=== PATIENT | female | born 1940 | race Two or more races ===

== ENCOUNTER 2017-09-04 18:51 | Inpatient (IN) | payer MEDICARE ==
[~2017-09-04] VITALS: Ht 157.5 cm; Wt 74.8 kg
--- NOTE | 2017-09-04 19:00 | NUR ---
Admitted patient from ER via [facility] with admitting DX: S/P Left Hip Arthoplasty. Routine admission care done. Plan of care initiated.
[2017-09-04 20:26] VITALS: BP 150/59
[2017-09-04] MEDS ORDERED: MAGN400O6 PO (20:59)
[2017-09-04] MEDS ORDERED: ARIP5TAB10 PO (20:59)
[2017-09-04] MEDS ORDERED: PANT40TA4 PO (20:59)
[2017-09-04] MEDS ORDERED: SOLI10TA2 PO (20:59)
[2017-09-04] MEDS ORDERED: LOSA50TA21 PO (20:59)
[2017-09-04] MEDS ORDERED: ACET325T53 PO (20:59)
[2017-09-04] MEDS ORDERED: DRON2.5C3 PO (20:59)
[2017-09-04] MEDS ORDERED: CLON0.1T PO (20:59)
[2017-09-04] MEDS ORDERED: DULO60CA63 PO (20:59)
[2017-09-04] MEDS ORDERED: GABA-536 PO (20:59)
[2017-09-04] MEDS ORDERED: NEBI5TAB8 PO (20:59)
[2017-09-04] MEDS ORDERED: ATOR40TA PO (20:59)
[2017-09-04] MEDS ORDERED: FOLI1TAB16 PO (20:59)
[2017-09-04] MEDS ORDERED: BISA-79 PR (20:59)
[2017-09-04] MEDS ORDERED: NA P133E RC (20:59)
[2017-09-04] MEDS ORDERED: MULT1TAB73 PO (20:59)
[2017-09-04] MEDS ORDERED: CHOL20004 PO (20:59)
[2017-09-04] MEDS ORDERED: SENN-18 PO (20:59)
[2017-09-04] MEDS ORDERED: LORA1TAB PO (20:59)
[2017-09-04] MEDS ORDERED: DOCU100C36 PO (20:59)
[2017-09-04] MEDS ORDERED: Z GUARD REMEDY PASTE 57 GM TUBE TOP PRN (22:45)
[2017-09-04] MEDS ORDERED: LORAZEPAM 1 MG TABLET PO PRN (23:00)
[2017-09-04] MEDS ORDERED: CLONIDINE HCL 0.1 MG TABLET PO PRN (23:00)
[2017-09-04] MEDS ORDERED: FLEET ENEMA 133 ML BOTTLE RC PRN (23:00)
[2017-09-05] MEDS: ACETAMINOPHEN 325 MG TABLET PO PRN ×2 (03:16→12:58)
--- NOTE | 2017-09-05 03:20 | NUR ---
Complaint of left hip incision pain, medicated with Tylenol as ordered and ordered. Will monitor.
[2017-09-05 05:00] VITALS: BP 149/71
[2017-09-05] MEDS: PANTOPRAZOLE SODIUM 40 MG TABLET.DR PO SCH (06:06)
--- NOTE | 2017-09-05 06:36 | NUR ---
Shift End Report: Vs stable. Slept well. Medicated once for complaint of pain in the incision site with relief. No further complaint presented. All needs attended and met. No significant event reported. Continue current plan of care.
[2017-09-05 07:55] VITALS: BP 151/69
[2017-09-05] MEDS ORDERED: Medication Not On Formulary EA (Solifenacin Succinate (Vesicare) 1 TAB) PO SCH (09:00)
[2017-09-05] MEDS ORDERED: Medication Not On Formulary EA (Nebivolol Hcl (Bystolic) 5 MG) PO SCH (09:00)
[2017-09-05] MEDS ORDERED: Medication Not On Formulary EA (Cholecalciferol (Vitamin D3) (Vitamin D CAPSULE) 1 CAP) PO SCH (09:00)
[2017-09-05] MEDS ORDERED: Medication Not On Formulary EA (Multivitamins (Multivitamin) 1 TAB) PO SCH (09:00)
[2017-09-05] MEDS: GABAPENTIN 400 MG CAPSULE PO SCH ×3 (09:32→17:13)
[2017-09-05] MEDS: OXYBUTYNIN CHLORIDE 5 MG TABLET PO SCH ×3 (09:32→17:13)
[2017-09-05] MEDS: LOSARTAN POTASSIUM 50 MG TABLET PO SCH (09:32)
[2017-09-05] MEDS: DOCUSATE SODIUM 100 MG CAPSULE PO SCH ×2 (09:32→17:12)
[2017-09-05] MEDS: DULOXETINE 60 MG CAPSULE.DR PO SCH (09:33)
[2017-09-05] MEDS: MULTIVITAMINS,THERAPEUTIC TABLET PO SCH (09:33)
[2017-09-05] MEDS: DRONABINOL 2.5 MG CAPSULE PO SCH ×2 (09:34→20:57)
[2017-09-05] MEDS: ARIPIPRAZOLE 5 MG TABLET PO SCH (09:34)
[2017-09-05] MEDS: CHOLECALCIFEROL 1,000 UNIT TABLET PO SCH (09:34)
[2017-09-05] MEDS: FOLIC ACID 1 MG TABLET PO SCH (09:44)
[2017-09-05] MEDS: OXYCODONE/APAP 5-325 MG TABLET PO PRN ×2 (10:07→17:15)
--- NOTE | 2017-09-05 20:02 | NUR ---
SBAR report received, board updated. Pt assessed, no acute distress or SOB noted. Pt c/o pain 09/05. notified, new order received. Pt medicated for pain as ordered for PRN pain. All comfort and safety needs attended to. Bed in locked and lowest position with side rails up x2. Abductor pillow in place. Pt compliant with all medications and care. Call light placed within reach. Will continue to monitor.
[2017-09-05 20:33] VITALS: BP 124/67
[2017-09-05] MEDS: SENNOSIDES 1 TABLET PO SCH (20:57)
[2017-09-05] MEDS: ATORVASTATIN 40 MG TABLET PO SCH (20:57)
[2017-09-05] MEDS: MORPHINE SULFATE SR 15 MG TABLET.SA PO SCH (21:11)
[2017-09-06] MEDS: ACETAMINOPHEN 325 MG TABLET PO PRN (03:11)
[2017-09-06] MEDS: OXYCODONE/APAP 5-325 MG TABLET PO PRN ×3 (04:13→18:04)
--- NOTE | 2017-09-06 04:29 | NUR ---
aaox4 admitted for left hip arthroplasty. left hip dressing with mariusz intact. noted a blister above left thigh. dressing applied. on pain management. pain meds given as ordered. needs attended. ambulates to the BR with walker with supervision. fall precautions maintained.kept comfortable.VSS.
[2017-09-06 05:56] VITALS: BP 125/80
[2017-09-06] MEDS: PANTOPRAZOLE SODIUM 40 MG TABLET.DR PO SCH (06:32)
[2017-09-06 08:00] VITALS: BP 141/73
[2017-09-06] MEDS: GABAPENTIN 400 MG CAPSULE PO SCH ×3 (09:16→16:30)
[2017-09-06] MEDS: DULOXETINE 60 MG CAPSULE.DR PO SCH (09:16)
[2017-09-06] MEDS: CHOLECALCIFEROL 1,000 UNIT TABLET PO SCH (09:16)
[2017-09-06] MEDS: FOLIC ACID 1 MG TABLET PO SCH (09:16)
[2017-09-06] MEDS: DRONABINOL 2.5 MG CAPSULE PO SCH ×2 (09:17→20:59)
[2017-09-06] MEDS: MULTIVITAMINS,THERAPEUTIC TABLET PO SCH (09:17)
[2017-09-06] MEDS: OXYBUTYNIN CHLORIDE 5 MG TABLET PO SCH ×3 (09:17→16:30)
[2017-09-06] MEDS: DOCUSATE SODIUM 100 MG CAPSULE PO SCH ×2 (09:17→16:31)
[2017-09-06] MEDS: ATENOLOL 25 MG TABLET PO SCH (09:18)
[2017-09-06] MEDS: LOSARTAN POTASSIUM 50 MG TABLET PO SCH (09:18)
[2017-09-06] MEDS: MORPHINE SULFATE SR 15 MG TABLET.SA PO SCH ×2 (09:19→20:59)
[2017-09-06] MEDS: ARIPIPRAZOLE 5 MG TABLET PO SCH (10:50)
[2017-09-06 16:00] VITALS: BP 103/50
--- NOTE | 2017-09-06 16:12 | NUR ---
SBAR report received this morning, board updated. Pt assessed, AAOx3, reports tolerable pain managed with scheduled and PRN pain medications. Pt compliant with routine medication administration and therapies as provided. Bed in locked and lowest position, side rails up x2. All comfort and safety needs met. Call light placed within reach. Will continue to monitor.
[2017-09-06 20:10] VITALS: BP 105/45
[2017-09-06] MEDS: SENNOSIDES 1 TABLET PO SCH (20:59)
[2017-09-06] MEDS: ATORVASTATIN 40 MG TABLET PO SCH (21:00)
[2017-09-07] MEDS: OXYCODONE/APAP 5-325 MG TABLET PO PRN ×3 (00:15→15:35)
[2017-09-07 05:56] VITALS: BP 110/46
--- NOTE | 2017-09-07 06:19 | NUR ---
Received report from day shift nurse , Pt slept well throughout the night , Pt had pain before sleep , a 7 / 10 , in left hip and was dull and aching . Pt given 2 tabs of Percoset and was effective , as pt went to sleep. No acute distress noted , pt is A & O x 4 , dressing on left hip is dry and intact .
[2017-09-07] MEDS: PANTOPRAZOLE SODIUM 40 MG TABLET.DR PO SCH (06:46)
--- NOTE | 2017-09-07 08:10 | NUR ---
RECEIVED PATIENT AWAKE, ALERT X4. WITH PAIN OVER LEFT HIP RATED 8/10. NOT IN ANY FORM OF DISTRESS. WILL CONTINUE TO MONITOR.
[2017-09-07 08:31] VITALS: BP 100/48
[2017-09-07] MEDS: CHOLECALCIFEROL 1,000 UNIT TABLET PO SCH (08:41)
[2017-09-07] MEDS: DULOXETINE 60 MG CAPSULE.DR PO SCH (08:42)
[2017-09-07] MEDS: DOCUSATE SODIUM 100 MG CAPSULE PO SCH ×2 (08:43→17:24)
[2017-09-07] MEDS: MULTIVITAMINS,THERAPEUTIC TABLET PO SCH (08:43)
[2017-09-07] MEDS: GABAPENTIN 400 MG CAPSULE PO SCH ×3 (08:43→17:24)
[2017-09-07] MEDS: FOLIC ACID 1 MG TABLET PO SCH (08:43)
[2017-09-07] MEDS: ARIPIPRAZOLE 5 MG TABLET PO SCH (08:44)
[2017-09-07] MEDS: MORPHINE SULFATE SR 15 MG TABLET.SA PO SCH ×2 (08:44→20:25)
[2017-09-07] MEDS: OXYBUTYNIN CHLORIDE 5 MG TABLET PO SCH ×3 (08:44→17:24)
[2017-09-07] MEDS: DRONABINOL 2.5 MG CAPSULE PO SCH ×2 (08:44→20:25)
[2017-09-07] MEDS: LOSARTAN POTASSIUM 50 MG TABLET PO SCH (08:49)
[2017-09-07] MEDS: ATENOLOL 25 MG TABLET PO SCH (08:49)
--- NOTE | 2017-09-07 09:00 | NUR ---
UP WITH PHYSICAL THERAPY, ROUTINE PAIN MEDICATIONS GIVEN. TOLERATING THERAPY WELL. HELD BLOOD PRESSURE MEDICATIONS. BP- 100/48. PATIENT ASYMPTOMATIC NO COMPLAINTS OF DIZZINESS, SOB OR CHEST PAINS.
--- NOTE | 2017-09-07 10:00 | NUR ---
SHOWERED WITH MINIMUM ASSISTANCE. SURGICAL DRESSING CHANGED, WOUND HEALING WELL, DRY INTACT MAGDA WITH BLISTER ON UPPER PART OF INCISION. PATIENT REQUESTED FOR HER TO BE SEEN BY WOUND CARE NURSE.
[2017-09-07] MEDS: SENNOSIDES 1 TABLET PO SCH (20:24)
[2017-09-07] MEDS: ATORVASTATIN 40 MG TABLET PO SCH (20:24)
[2017-09-07] MEDS: BISACODYL 5 MG TABLET.DR PO PRN (20:25)
[2017-09-07 20:26] VITALS: BP 105/55
[2017-09-08] MEDS: OXYCODONE/APAP 5-325 MG TABLET PO PRN ×4 (01:20→22:34)
--- NOTE | 2017-09-08 04:19 | NUR ---
aaox4 ambulates with walker to the BR. voiding well. needs attended. kept comfortable. pain meds given as ordered. relief noted. no further complaints noted this shift. will monitor patient.
[2017-09-08 05:12] VITALS: BP 94/44
[2017-09-08] MEDS: PANTOPRAZOLE SODIUM 40 MG TABLET.DR PO SCH (06:31)
[2017-09-08 08:00] VITALS: BP 109/49
--- NOTE | 2017-09-08 08:00 | NUR ---
Received patient awake, alert x4. Not in any form of distress with pain over left hip, routine pain medications given. Encouraged increase fluid intake. Offered prune juice to help with BM
[2017-09-08] MEDS: DRONABINOL 2.5 MG CAPSULE PO SCH ×2 (08:56→20:31)
[2017-09-08] MEDS: GABAPENTIN 400 MG CAPSULE PO SCH ×3 (08:56→16:55)
[2017-09-08] MEDS: DOCUSATE SODIUM 100 MG CAPSULE PO SCH ×2 (08:56→16:55)
[2017-09-08] MEDS: DULOXETINE 60 MG CAPSULE.DR PO SCH (08:56)
[2017-09-08] MEDS: MULTIVITAMINS,THERAPEUTIC TABLET PO SCH (08:57)
[2017-09-08] MEDS: OXYBUTYNIN CHLORIDE 5 MG TABLET PO SCH ×3 (08:57→16:55)
[2017-09-08] MEDS: FOLIC ACID 1 MG TABLET PO SCH (08:57)
[2017-09-08] MEDS: CHOLECALCIFEROL 1,000 UNIT TABLET PO SCH (08:57)
[2017-09-08] MEDS: ARIPIPRAZOLE 5 MG TABLET PO SCH (08:58)
[2017-09-08] MEDS: MORPHINE SULFATE SR 15 MG TABLET.SA PO SCH ×2 (08:58→20:31)
[2017-09-08] MEDS: LOSARTAN POTASSIUM 50 MG TABLET PO SCH (08:58)
[2017-09-08] MEDS: ATENOLOL 25 MG TABLET PO SCH (08:59)
--- NOTE | 2017-09-08 10:30 | NUR ---
Up with physical therapy, tolerating therapy well. PRN Percocet given pain rated as 7/10
[2017-09-08] MEDS: ACETAMINOPHEN 325 MG TABLET PO PRN (13:32)
--- NOTE | 2017-09-08 13:41 | NUR ---
INTERDISCIPLINARY TEAM CONFERENCE
--- NOTE | 2017-09-08 14:47 | NUR ---
WOUND CARE CONSULT: PT SEEN FOR RT UPPER HIP INTACT BLISTER, FROM PREVIOUS TAPE PER PATIENT. RECOMMENDATIONS MADE FOR WOUND CARE AND SKIN PROTECTION. DISCUSSED WITH NURSING STAFF. WILL SEE PRN. VALDEZ IN AGREEMENT WITH PLAN OF CARE. Addendum: 09/08/17 at 1448 by GOYO KRISHNA RN Amended: Links added.
[2017-09-08 16:00] VITALS: BP 128/62
[2017-09-08 19:59] VITALS: BP 107/59
[2017-09-08] MEDS: ATORVASTATIN 40 MG TABLET PO SCH (20:31)
[2017-09-08] MEDS: BISACODYL 5 MG TABLET.DR PO PRN (20:31)
[2017-09-08] MEDS: SENNOSIDES 1 TABLET PO SCH (20:31)
--- NOTE | 2017-09-08 21:56 | NUR ---
Received pt sleeping in bed. Aroused easily by name. AAO x4. VSS. No acute distress noted. C/o pain on left hip. Meds given per MD's order. Dulcolax HS PRN also given for constipation. Safety measures maintained. Call light and personal belongings within reach. Will continue to monitor.
[2017-09-09 05:00] VITALS: BP 117/54
[2017-09-09] MEDS: OXYCODONE/APAP 5-325 MG TABLET PO PRN ×2 (05:45→15:57)
[2017-09-09] MEDS: PANTOPRAZOLE SODIUM 40 MG TABLET.DR PO SCH (06:31)
[2017-09-09 07:39] LABS: BASOPHILS # (AUTO) 0.1 K/uL (0.0-8.0); BASOPHILS % (AUTO) 1.2 % (0.0-2.0); EOSINOPHILS # (AUTO) 0.4 K/uL (0.0-0.7); EOSINOPHILS % (AUTO) 5.9 % (0.0-7.0); HEMATOCRIT 30.3 % (31.2-41.9); HEMOGLOBIN 10.4 g/dL (10.9-14.3); LYMPHOCYTES # (AUTO) 2.2 K/uL (20.0-40.0); LYMPHOCYTES % (AUTO) 29.4 % (20.5-51.5); MEAN CORPUSCULAR HEMOGLOBIN 32.1 uug (24.7-32.8); MEAN CORPUSCULAR HGB CONC 34 g/dL (32.3-35.6); MEAN CORPUSCULAR VOLUME 93.6 fL (75.5-95.3); MONOCYTES # (AUTO) 1.1 K/uL (2.0-10.0); MONOCYTES % (AUTO) 14.4 % (0.0-11.0); NEUTROPHILS # (AUTO) 3.7 K/uL (1.8-8.9); NEUTROPHILS % (AUTO) 49.1 % (38.5-71.5); PLATELET COUNT (AUTO) 399 K/uL (179-408); RED BLOOD CELL COUNT(AUTO) 3.24 MIL/uL (3.63-4.92); WHITE BLOOD COUNT (AUTO) 7.5 K/uL (3.8-11.8)
[2017-09-09 07:53] LABS: ALANINE AMINOTRANSFERASE 17 U/L (14-59); ALKALINE PHOSPHATASE 115 U/L (50-136); ASPARTATE AMINOTRANSFERASE 15 U/L (15-37); BILIRUBIN,TOTAL 0.3 mg/dL (0.2-1.0); CARBON DIOXIDE 30 mmol/L (21-32); CHLORIDE 107 mmol/L (98-107); CREATININE 0.7 mg/dL (0.6-1.3); GLUCOSE 90 mg/dL (74-106); MAGNESIUM 1.8 mg/dL (1.8-2.4); PHOSPHOROUS 4.7 mg/dL (2.5-4.9); POTASSIUM 4.2 mmol/L (3.5-5.1); TOTAL PROTEIN, SERUM 5.8 g/dL (6.4-8.2); UREA NITROGEN, BLOOD 8 mg/dL (7-18)
[2017-09-09] MEDS: ARIPIPRAZOLE 5 MG TABLET PO SCH (08:49)
[2017-09-09] MEDS: GABAPENTIN 400 MG CAPSULE PO SCH ×3 (08:50→15:57)
[2017-09-09] MEDS: MULTIVITAMINS,THERAPEUTIC TABLET PO SCH (08:50)
[2017-09-09] MEDS: FOLIC ACID 1 MG TABLET PO SCH (08:50)
[2017-09-09] MEDS: DOCUSATE SODIUM 100 MG CAPSULE PO SCH ×2 (08:50→15:57)
[2017-09-09] MEDS: ATENOLOL 25 MG TABLET PO SCH (08:50)
[2017-09-09] MEDS: MAGNESIUM HYDROXIDE 30 ML LIQUID UDC PO SCH (08:50)
[2017-09-09] MEDS: DULOXETINE 60 MG CAPSULE.DR PO SCH (08:50)
[2017-09-09] MEDS: DRONABINOL 2.5 MG CAPSULE PO SCH ×2 (08:50→20:25)
[2017-09-09] MEDS: OXYBUTYNIN CHLORIDE 5 MG TABLET PO SCH ×3 (08:51→15:57)
[2017-09-09] MEDS: CHOLECALCIFEROL 1,000 UNIT TABLET PO SCH (08:51)
[2017-09-09] MEDS: LOSARTAN POTASSIUM 50 MG TABLET PO SCH (08:51)
[2017-09-09] MEDS: MORPHINE SULFATE SR 15 MG TABLET.SA PO SCH ×2 (08:51→20:25)
[2017-09-09 09:38] VITALS: BP 126/61
--- NOTE | 2017-09-09 09:51 | NUR ---
pt seen on rounding. pt vitals stable. received report that pt had not had a bm. offered dulcolax and taken. instructed pt not to use too much narcotics. pt agrees. will continue to monitor.
[2017-09-09] MEDS ORDERED: BISACODYL 10 MG SUPP.RECT RC PRN (13:45)
--- NOTE | 2017-09-09 19:30 | NUR ---
PT ALERT AND ORIENTED IN BED. NO DISTRESS NOTED. COMPLIANT WITH NURSING CARE. SAFETY MAINTAINED. CALL LIGHT WITHIN REACH. WILL CONTINUE TO MONITOR.
[2017-09-09 20:00] VITALS: BP 119/72
[2017-09-09] MEDS: SENNOSIDES 1 TABLET PO SCH (20:25)
[2017-09-09] MEDS: ATORVASTATIN 40 MG TABLET PO SCH (20:25)
[2017-09-10] MEDS: OXYCODONE/APAP 5-325 MG TABLET PO PRN ×4 (04:12→23:50)
[2017-09-10 05:43] VITALS: BP 103/54
[2017-09-10] MEDS: PANTOPRAZOLE SODIUM 40 MG TABLET.DR PO SCH (06:31)
--- NOTE | 2017-09-10 07:28 | NUR ---
PT ALERT AND ORIENTED IN BED. NO DISTRESS NOTED. COMPLIANT WITH NURSING CARE AND MEDICATIONS. ABDUCTOR PILLOW IN PLACE. SAFETY MAINTAINED. CALL LIGHT WITHIN REACH.
[2017-09-10] MEDS: CHOLECALCIFEROL 1,000 UNIT TABLET PO SCH (08:04)
[2017-09-10] MEDS: DULOXETINE 60 MG CAPSULE.DR PO SCH (08:04)
[2017-09-10] MEDS: MULTIVITAMINS,THERAPEUTIC TABLET PO SCH (08:04)
[2017-09-10] MEDS: ARIPIPRAZOLE 5 MG TABLET PO SCH (08:04)
[2017-09-10] MEDS: OXYBUTYNIN CHLORIDE 5 MG TABLET PO SCH ×3 (08:04→16:21)
[2017-09-10] MEDS: DOCUSATE SODIUM 100 MG CAPSULE PO SCH ×2 (08:04→16:21)
[2017-09-10] MEDS: GABAPENTIN 400 MG CAPSULE PO SCH ×3 (08:04→16:21)
[2017-09-10] MEDS: MORPHINE SULFATE SR 15 MG TABLET.SA PO SCH ×3 (08:05→21:00)
[2017-09-10] MEDS: FOLIC ACID 1 MG TABLET PO SCH (08:05)
[2017-09-10] MEDS: DRONABINOL 2.5 MG CAPSULE PO SCH ×2 (08:05→20:45)
[2017-09-10] MEDS: ATENOLOL 25 MG TABLET PO SCH (08:07)
[2017-09-10] MEDS: LOSARTAN POTASSIUM 50 MG TABLET PO SCH (08:07)
[2017-09-10 09:33] VITALS: BP 102/53
--- NOTE | 2017-09-10 20:00 | NUR ---
RECEIVED PATIENT AWAKE IN BED. A/O X4. VERY PLEASANT WHEN APPROACHED. DENIES PAIN AT THIS TIME. NO RESP. DISTRESS NOTED. DRESSING NOTED TO LEFT HIP, C/D/I. VS WNL. NEUROVASCULAR CHECKS WNL. CALL LIGHT IN REACH. ALL NEEDS ATTENDED. WILL CONTINUE TO MONITOR AND ASSESS.
[2017-09-10 20:44] VITALS: BP 95/62
[2017-09-10] MEDS: ATORVASTATIN 40 MG TABLET PO SCH (20:45)
[2017-09-10] MEDS: SENNOSIDES 1 TABLET PO SCH (20:45)
--- NOTE | 2017-09-10 21:00 | NUR ---
PATIENT ASLEEP IN BED. PATIENT HAS SCHEDULED MS CONTIN 15MG Q12 HOURS ORDERED. PATIENT DENIES PAIN AT THIS TIME. MS CONTIN HELD AT THIS TIME DUE TO DECREASED BP. BLOOD PRESSURE 90/50. PATIENT IS ASYMPTOMATIC. WILL CONTINUE TO MONITOR AND ASSESS. Addendum: 09/10/17 at 2210 by ETHAN AYALA LVN CHECKED BLOOD PRESSURE ON RIGHT ARM 85/49 AND LEFT ARM 90/50. WILL NOTIFY
--- NOTE | 2017-09-10 21:50 | NUR ---
NOTIFIED DR. CUETO OF HOLDING PATIENTS MS CONTIN MEDICATION DUE TO DECREASED MEDICATION. RECEIVED NEW ORDER TO D/C MS 15MG. WILL ALSO CALL LEO OHARA TO NOTIFY HIM OF LOW BP. WILL CONTINUE TO MONITOR AND ASSESS.
--- NOTE | 2017-09-10 22:15 | NUR ---
NOTIFIED ANJUM LETTER[employer] SETTER OF PATIENTS LOW BLOOD PRESSURE. NO NEW ORDERS RECEIVED AT THIS TIME. WILL CONTINUE TO MONITOR AND ASSESS BLOOD PRESSURE. ALL NEEDS ATTENDED.
--- NOTE | 2017-09-10 23:25 | NUR ---
ASSISTED PATIENT TO BATHROOM. DENIES PAIN. RECHECKED BLOOD PRESSURE AND RECEIVED 125/51. ALL OTHER VS WNL. ALL NEEDS ATTENDED. WILL CONTINUE TO MONITOR AND ASSESS.
[2017-09-11 05:09] VITALS: BP 108/49
[2017-09-11] MEDS: OXYCODONE/APAP 5-325 MG TABLET PO PRN ×5 (06:02→23:42)
--- NOTE | 2017-09-11 06:07 | NUR ---
PATIENT AWAKE IN BED. VSS. C/O PAIN IN LEFT HIP. GIVEN PERCOCET 2 TAB PO PRN FOR PAIN. CALL LIGHT IN REACH. ALL NEEDS ATTENDED. WILL CONTINUE TO MONITOR AND ASSESS.
[2017-09-11] MEDS: PANTOPRAZOLE SODIUM 40 MG TABLET.DR PO SCH (06:35)
--- NOTE | 2017-09-11 07:50 | NUR ---
RECEIVED PATIENT AWAKE, ALERT AND ORIENTEDX4. NO COMPLAINT VOICE DURING ROUNDS. NOT IN DISTRESS. CONTINUE THERAPY FOR S/P ARTHROPLASTY. CONTINUE ON PAIN MANAGEMENT WITH GOOD EFFECT. WILL CONTINUE MONITOR
[2017-09-11 08:00] VITALS: BP 106/43
[2017-09-11] MEDS: ARIPIPRAZOLE 5 MG TABLET PO SCH (08:34)
[2017-09-11] MEDS: ATENOLOL 25 MG TABLET PO SCH (08:34)
[2017-09-11] MEDS: GABAPENTIN 400 MG CAPSULE PO SCH ×3 (08:34→17:51)
[2017-09-11] MEDS: DULOXETINE 60 MG CAPSULE.DR PO SCH (08:35)
[2017-09-11] MEDS: DRONABINOL 2.5 MG CAPSULE PO SCH ×2 (08:35→20:31)
[2017-09-11] MEDS: CHOLECALCIFEROL 1,000 UNIT TABLET PO SCH (08:35)
[2017-09-11] MEDS: OXYBUTYNIN CHLORIDE 5 MG TABLET PO SCH ×3 (08:35→17:51)
[2017-09-11] MEDS: MULTIVITAMINS,THERAPEUTIC TABLET PO SCH (08:35)
[2017-09-11] MEDS: DOCUSATE SODIUM 100 MG CAPSULE PO SCH ×2 (08:35→17:00)
[2017-09-11] MEDS: FOLIC ACID 1 MG TABLET PO SCH (08:36)
[2017-09-11] MEDS: LOSARTAN POTASSIUM 50 MG TABLET PO SCH (08:36)
[2017-09-11 16:29] VITALS: BP 117/55
[2017-09-11] MEDS: SENNOSIDES 1 TABLET PO SCH (20:31)
[2017-09-11] MEDS: ATORVASTATIN 40 MG TABLET PO SCH (20:31)
[2017-09-11 20:34] VITALS: BP 109/50
--- NOTE | 2017-09-11 21:38 | NUR ---
awake alert and oriented x4. needs attended. abductor pillow in between legs. call loya within reach. no acute distress noted. ambulates to the BR with walker. voiding freely. denies any pain at this time. kept comfortable.siderails up for safety. fall precautions maintained.
[2017-09-12] MEDS: OXYCODONE/APAP 5-325 MG TABLET PO PRN ×4 (06:04→23:23)
[2017-09-12 06:32] VITALS: BP 131/68
[2017-09-12] MEDS: PANTOPRAZOLE SODIUM 40 MG TABLET.DR PO SCH (06:34)
--- NOTE | 2017-09-12 06:43 | NUR ---
quiet night. needs attended. pain meds given as needed. relief noted. needs attended. will monitor patient. kept comfortable.VSS.
[2017-09-12 08:12] VITALS: BP 119/63
[2017-09-12] MEDS: OXYBUTYNIN CHLORIDE 5 MG TABLET PO SCH ×4 (09:55→20:49)
[2017-09-12] MEDS: ATENOLOL 25 MG TABLET PO SCH (09:55)
[2017-09-12] MEDS: FOLIC ACID 1 MG TABLET PO SCH (09:55)
[2017-09-12] MEDS: DOCUSATE SODIUM 100 MG CAPSULE PO SCH ×2 (09:55→16:12)
[2017-09-12] MEDS: CHOLECALCIFEROL 1,000 UNIT TABLET PO SCH (09:55)
[2017-09-12] MEDS: DRONABINOL 2.5 MG CAPSULE PO SCH ×2 (09:55→20:49)
[2017-09-12] MEDS: LOSARTAN POTASSIUM 50 MG TABLET PO SCH (09:56)
[2017-09-12] MEDS: DULOXETINE 60 MG CAPSULE.DR PO SCH (09:56)
[2017-09-12] MEDS: MULTIVITAMINS,THERAPEUTIC TABLET PO SCH (09:56)
[2017-09-12] MEDS: GABAPENTIN 400 MG CAPSULE PO SCH ×3 (09:56→16:12)
[2017-09-12] MEDS: ARIPIPRAZOLE 5 MG TABLET PO SCH (09:56)
--- NOTE | 2017-09-12 10:37 | NUR ---
Received patient awake, alert and orientedx3. For outside surgeon consult at 1330. 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 not in distress. Continue pain management with good effect. will continue monitor
--- NOTE | 2017-09-12 13:37 | NUR ---
Patient went out for follow up ortho surgeon consult via stretcher in stable condition. with left hip x-ray result. Pain medication, norco 5-325mg 2 tabs given around 11am.
[2017-09-12 16:00] VITALS: BP 109/59
--- NOTE | 2017-09-12 20:00 | NUR ---
RECEIVED PATIENT AWAKE IN BED. A/O X4. DENIES PAIN OR DISCOMFORT. NO RESP. DISTRESS NOTED. VS WNL. NEUROVASCULAR CHECKS WNL. SENSATION PRESENT. DRESSING NOTED TO LEFT HIP, C/D/I. CALL LIGHT IN REACH. ALL NEEDS ATTENDED. WILL CONTINUE TO MONITOR AND ASSESS.
[2017-09-12 20:31] VITALS: BP 114/50
[2017-09-12] MEDS: ATORVASTATIN 40 MG TABLET PO SCH (20:49)
[2017-09-12] MEDS: SENNOSIDES 1 TABLET PO SCH (20:49)
[2017-09-13] MEDS: ACETAMINOPHEN 325 MG TABLET PO PRN (02:13)
[2017-09-13 05:00] VITALS: BP 118/46
[2017-09-13] MEDS: OXYCODONE/APAP 5-325 MG TABLET PO PRN ×4 (05:12→23:45)
--- NOTE | 2017-09-13 05:15 | NUR ---
PATIENT AWAKE IN BED. C/O PAIN IN LEFT HIP. GIVEN PERCOCET 2 TABS PO PRN FOR PAIN. WILL CONTINUE TO MONITOR AND ASSESS.
[2017-09-13] MEDS: PANTOPRAZOLE SODIUM 40 MG TABLET.DR PO SCH (06:36)
--- NOTE | 2017-09-13 08:01 | NUR ---
SBAR report received, board updated. Pt assessed, no acute distress or SOB. Plan for today including wound care discussed. Bed in locked and lowest position with side rails up x2. Call light within reach. Will continue to monitor.
[2017-09-13] MEDS: GABAPENTIN 400 MG CAPSULE PO SCH ×3 (08:31→16:38)
[2017-09-13] MEDS: DULOXETINE 60 MG CAPSULE.DR PO SCH (08:32)
[2017-09-13] MEDS: MULTIVITAMINS,THERAPEUTIC TABLET PO SCH (08:32)
[2017-09-13] MEDS: FOLIC ACID 1 MG TABLET PO SCH (08:32)
[2017-09-13] MEDS: CHOLECALCIFEROL 1,000 UNIT TABLET PO SCH (08:32)
[2017-09-13] MEDS: OXYBUTYNIN CHLORIDE 5 MG TABLET PO SCH ×4 (08:32→20:32)
[2017-09-13] MEDS: DOCUSATE SODIUM 100 MG CAPSULE PO SCH ×2 (08:32→16:38)
[2017-09-13] MEDS: DRONABINOL 2.5 MG CAPSULE PO SCH ×2 (08:33→20:32)
[2017-09-13] MEDS: ARIPIPRAZOLE 5 MG TABLET PO SCH (08:36)
[2017-09-13] MEDS: ATENOLOL 25 MG TABLET PO SCH (08:36)
[2017-09-13] MEDS: LOSARTAN POTASSIUM 50 MG TABLET PO SCH (08:36)
[2017-09-13 09:46] VITALS: BP 124/55
[2017-09-13 15:50] VITALS: BP 105/45
--- NOTE | 2017-09-13 18:50 | NUR ---
No change in Pt status, VS WNL. All comfort and safety needs met promptly. Call light and personal belongings placed within reach. Will continue to monitor and endorse to on coming police shift commander.
[2017-09-13] MEDS: ATORVASTATIN 40 MG TABLET PO SCH (20:32)
[2017-09-13] MEDS: SENNOSIDES 1 TABLET PO SCH (20:32)
[2017-09-13 20:34] VITALS: BP 110/44
--- NOTE | 2017-09-13 21:05 | NUR ---
Patient received at bed Awake and Alert Oriented x 4. No acute distress or SOB was noted. able to make needs known. Bed in low position, side rails up x2, alarm and brake on. Call light and personal belongings within reach. Continue to monitor
--- NOTE | 2017-09-14 05:21 | NUR ---
End of the shift report: Patient is at her bed. No acute distress or SOB was noted. Has a good sleep and was stable throughout the shift. Meds given as ordered. All needs attended and anticipated. Bed in low position, side rails up x2, alarm and brake on. Call light and personal belongings within reach. Will endorse to morning shift accordingly.
[2017-09-14 05:46] VITALS: BP 129/48
[2017-09-14] MEDS: OXYCODONE/APAP 5-325 MG TABLET PO PRN ×2 (06:15→12:01)
[2017-09-14] MEDS: PANTOPRAZOLE SODIUM 40 MG TABLET.DR PO SCH (06:30)
[2017-09-14 08:00] VITALS: BP 122/51
[2017-09-14] MEDS: DRONABINOL 2.5 MG CAPSULE PO SCH (08:23)
[2017-09-14] MEDS: GABAPENTIN 400 MG CAPSULE PO SCH ×2 (08:23→12:01)
[2017-09-14] MEDS: DOCUSATE SODIUM 100 MG CAPSULE PO SCH (08:23)
[2017-09-14] MEDS: MULTIVITAMINS,THERAPEUTIC TABLET PO SCH (08:24)
[2017-09-14] MEDS: CHOLECALCIFEROL 1,000 UNIT TABLET PO SCH (08:24)
[2017-09-14] MEDS: FOLIC ACID 1 MG TABLET PO SCH (08:24)
[2017-09-14] MEDS: DULOXETINE 60 MG CAPSULE.DR PO SCH (08:25)
[2017-09-14] MEDS: OXYBUTYNIN CHLORIDE 5 MG TABLET PO SCH ×2 (08:25→12:01)
[2017-09-14] MEDS: ARIPIPRAZOLE 5 MG TABLET PO SCH (08:27)
[2017-09-14 08:29] VITALS: BP 148/58
[2017-09-14] MEDS: LOSARTAN POTASSIUM 50 MG TABLET PO SCH (08:29)
[2017-09-14] MEDS: ATENOLOL 25 MG TABLET PO SCH (08:29)
[2017-09-14] MEDS: MAGNESIUM HYDROXIDE 30 ML LIQUID UDC PO SCH (13:33)
--- NOTE | 2017-09-14 14:25 | NUR ---
Nurse Notes: patient alert and oriented, able to make needs known remained stable throughout the shift with no acute changes noted. no changes in LOC or mentation. No SOB or distress. Assessed and reassessed for pain, medicated with Percocet PRN as ordered. Medicated with Colace and MOM for bowel movement. Patient was discharged back to SNF ([facility]) as ordered. Report given to Rosie RN. All belongings complete. No missing items. Skin was assessed. Photos taken, filed in the chart. Patient was picked up by 2 EMT staff on a gurney via ambulance. Left unit with no SOB or distress.
== END 2017-09-14 14:25 | DRG 561 ==
PROVIDERS: ADMIT Physical Medicine & Rehabilitation Pain Medicine; ATTEND Physical Medicine & Rehabilitation Pain Medicine
DX: Z47.1 Aftercare following joint replacement surgery (principal); Z96.642 Presence of left artificial hip joint; I10 Essential (primary) hypertension; G89.29 Other chronic pain; M54.5 Low back pain; E78.5 Hyperlipidemia, unspecified; F32.9 Major depressive disorder, single episode, unspecified; F41.9 Anxiety disorder, unspecified; G62.9 Polyneuropathy, unspecified; M47.812 Spondylosis without myelopathy or radiculopathy, cervical region; N32.81 Overactive bladder; R32 Unspecified urinary incontinence; Z98.1 Arthrodesis status; Z88.2 Allergy status to sulfonamides
CPT/HCPCS: 36415; 73502; 83735; 84100; 85025; 92526; 92610; 97110; 97112; 97116; 97530; 97535; A4217; A4663; Q0167